=== PATIENT | female | born 1965 | race Caucasian/White ===

== ENCOUNTER 2020-09-02 08:10 | Outpatient (REF) | payer BC, SELFPAY ==
[2020-09-02 11:23] LABS: Free T4 (Free Thyroxine) 0.94 ng/dL (0.71-1.85); Thyroid Stimulating Hormone 2.36 uIU/mL (0.32-4.0)
[2020-09-03 14:42] LABS: Triiodothyronine T3 Free 3.1 pg/mL (2.3-4.2)
[2020-09-07 03:37] LABS: Thyroglobulin Antibody <1 IU/mL (<=1); Thyroglobulin Level <0.1 ng/mL
== END 2020-09-02 08:11 | disposition home or self-care (01) ==
LOC: HO.WFDLDS 08:10
PROVIDERS: PCP Pediatrics; Visit Provider Internal Medicine Endocrinology, Diabetes & Metabolism
DX: E89.0 Postprocedural hypothyroidism (principal); C73 Malignant neoplasm of thyroid gland
CPT/HCPCS: 36415; 84432; 84439; 84443; 84481; 86800

== ENCOUNTER 2021-02-17 08:05 | Outpatient (REF) | payer BC, SELFPAY ==
[2021-02-17 11:41] LABS: Free T4 (Free Thyroxine) 1.02 ng/dL (0.71-1.85); Thyroid Stimulating Hormone 0.72 uIU/mL (0.32-4.0)
[2021-02-18 20:27] LABS: Triiodothyronine T3 Free 3.3 pg/mL (2.3-4.2)
[2021-02-21 04:21] LABS: Thyroglobulin Antibody <1 IU/mL (<=1); Thyroglobulin Level <0.1 ng/mL
== END 2021-02-17 08:06 | disposition home or self-care (01) ==
LOC: HO.WFDLDS 08:05
PROVIDERS: PCP Pediatrics; Visit Provider Internal Medicine Endocrinology, Diabetes & Metabolism
DX: C73 Malignant neoplasm of thyroid gland (principal); E89.0 Postprocedural hypothyroidism
CPT/HCPCS: 36415; 84432; 84439; 84443; 84481; 86800

== ENCOUNTER → 2021-02-26 07:28 | Outpatient (BNVA) | payer BC, SELFPAY | PROVIDERS: PCP Pediatrics; Visit Provider Internal Medicine Endocrinology, Diabetes & Metabolism ==

== ENCOUNTER 2022-04-27 08:45 | Outpatient (REF) | payer BC, SELFPAY ==
[2022-04-27 10:26] LABS: Free T4 (Free Thyroxine) 1.12 ng/dL (0.71-1.85); Thyroid Stimulating Hormone 0.78 uIU/mL (0.32-4.0)
[2022-04-29 00:41] LABS: Triiodothyronine T3 Free 3.5 pg/mL (2.3-4.2)
[2022-04-30 04:42] LABS: Thyroglobulin Antibody <1 IU/mL (<=1); Thyroglobulin Level <0.1 ng/mL
== END 2022-04-27 08:46 | disposition home or self-care (01) ==
LOC: HO.LAB 08:45
PROVIDERS: PCP Internal Medicine; Visit Provider Internal Medicine Endocrinology, Diabetes & Metabolism
DX: E03.9 Hypothyroidism, unspecified (principal); C73 Malignant neoplasm of thyroid gland
CPT/HCPCS: 36415; 84432; 84439; 84443; 84481; 86800

== ENCOUNTER 2023-04-22 09:27 | Outpatient (REF) | payer BC, SELFPAY ==
[2023-04-22 12:11] LABS: Free T4 (Free Thyroxine) 0.94 ng/dL (0.71-1.85); Thyroid Stimulating Hormone 1.14 uIU/mL (0.32-4.0)
[2023-04-27 06:19] LABS: Thyroglobulin Antibody <1 IU/mL (<=1); Thyroglobulin Level <0.1 ng/mL
== END 2023-04-22 09:28 | disposition home or self-care (01) ==
LOC: HO.WFDLDS 09:27
PROVIDERS: Visit Provider Internal Medicine Endocrinology, Diabetes & Metabolism
DX: C73 Malignant neoplasm of thyroid gland (principal); E03.9 Hypothyroidism, unspecified
CPT/HCPCS: 36415; 84432; 84439; 84443; 86800

== ENCOUNTER 2023-05-06 07:47 | Outpatient (AMB) | payer BC, SELFPAY ==
[2023-05-06 07:53] VITALS: BP 124/72; PULSE 83; BMI 32.7
--- NOTE | 2023-05-06 07:53 | MHC.OFFVIS ---
Intake Vital Signs 05/06/23 07:53 Height 5 ft 10.63 in Weight 231 lb 14.821 oz BMI 32.7 BP 124/72 Blood Pressure Location Rt brachial Position Sitting Pulse 83 Pulse Source Pulse Oximeter Intake Visit Reasons: F/up thyroid cancer/Confirm Intake Note: Patient present today for Thyroid cancer follow up visit. 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 Accompanied by: Self / Same As Patient Allergies No Known Allergies Allergy (Verified 05/06/23 07:56) Medication List - Last Reconciled 05/06/23 by Jose Bach MD amlodipine 5 mg PO DAILY folic acid 1 mg PO DAILY hydroxychloroquine (Plaquenil) 400 mg PO DAILY leflunomide 10 mg PO DAILY leucovorin calcium 15 mg PO weekly; levothyroxine (Synthroid) 137 mcg PO DAILY 90 days liothyronine (Cytomel) 5 mcg PO .Twice a day 90 days methotrexate sodium 8 tabs weekly PO every week; HPI HPI Comments History of Present Illness Details 57 -year-old female today for fup visit, for fup PTC and postsurgical hypothyroidism . She is feeling well, she has no complaints. She has been on Synthroid 137 mcg plus Cytomel 5 mcg twice a day since 01/03/2019. She is 100 % adherent and she has a good method of administration. She has stage 1 PTC ( T1b, Nx M0). tumor size 1.5 x 1.5 x 1.0 cm Denies palpitations, tremors, constipation or diarrhea, nervousness, insomnia, weight stable, heat intolerance, sweating. She has PMH of mixed connective tissue disorder , post surgical/BLANCHARD ablation hypothyroidism for papillary carcinoma 2009. The summary of thyroid history is as follows: She underwent thyroid ultrasound on 05/15/10 and was found to have a multinodular goiter. One nodule had PTC in the right lower base that measured 1.19 x 1.52 x 1.83 cm and The patient underwent total thyroidectomy on 07/17/10. Histology showed that papillary carcinoma measured 1.5 x 1.5 x 1.0 cm and it was present in the right lobe. There was no lymphovascular invasion and no extra thyroidal extension was identified. The margins were free of tumor. The stage was pT1b lymph nodes were not resected during thyroidectomy and classification for lymph nodes pNx. After thyroidectomy, the patient underwent pre- ablation scan which was conducted on 08/14/10. This scan showed focused radioiodine uptake in the neck. There was no other uptake other than physiologic indicating that there was no distant metastatic disease uptake in the neck of the thyroid bed indicates a functioning thyroid tissue as the patient has not yet had radioactive iodine ablation. She was ablated with 101.3 mCi of radioactive iodine-131 on 08/17/10. Neck ultrasound in 02/12/2020 showed normal morphology lymphadenopathy no abnormal lymph nodes and no residual tissue. Laboratory Tests 01/29/20 02/17/21 02/17/21 07:42 08:20 08:20 TSH 3rd Generation 0.40 TSH 0.72 Free T4 1.02 Free T3 Thyroglobulin <0.1 Thyroglobulin Anti body <1 02/17/21 08:20 TSH 3rd Generation TSH Free T4 Free T3 3.3 Thyroglobulin Thyroglobulin Anti body Laboratory Tests 11/02/18 11/02/18 01/02/19 10:25 10:25 08:49 TSH Free T4 1.06 1.00 Free T3 2.7 TSH 3rd Generation 6.01 H 5.35 H Thyroglobulin Thyroglobulin Anti body 01/02/19 07/17/19 07/17/19 08:49 08:41 08:41 TSH Free T4 1.02 Free T3 2.7 3.1 TSH 3rd Generation 2.83 Thyroglobulin <0.1 Thyroglobulin Anti body <1 01/29/20 01/29/20 09/02/20 07:42 07:42 08:30 TSH 2.36 Free T4 1.07 0.94 Free T3 3.7 TSH 3rd Generation 0.40 Thyroglobulin <0.1 Thyroglobulin Anti body <1 09/02/20 09/02/20 02/17/21 08:30 08:30 08:20 TSH Free T4 Free T3 3.1 TSH 3rd Generation Thyroglobulin <0.1 Thyroglobulin Anti body <1 <1 [facility] Medical History (Updated 02/26/21 @ 07:42 by Iveth Pollard MD) Hypothyroidism Primary thyroid cancer Surgical History History of biopsy History of surgery Hx of total thyroidectomy Family History Mother Myocardial infarct Social History Alcohol intake: current Patient Tobacco Use Status: Never used Tobacco Physical Exam Vital Signs: Last Vital Signs Pulse 83 05/06/23 07:53 BP 124/72 05/06/23 07:53 BMI result Body Mass Index 32.7 HEENT Other: Healed scar status post thyroidectomy. There is no cervical adenopathy palpated. Reflexes 2+ deep Assessment & Plan Assessment & Plan (1) Primary thyroid cancer: Code(s): C73 - Malignant neoplasm of thyroid gland Plan: This is a 56-year-old white female with a history of papillary cancer status post total thyroidectomy currently replaced on levothyroxine (Synthroid) 137 mcg and Cytomel 5 mcg. She appears to be clinically biochemically euthyroid. Thyroglobulin have been undetectable. Plan is to continue the current management Medications: Refilled liothyronine (Cytomel) 5 mcg PO .Twice a day 90 days 180 tabs 3RF E03.9 - Hypothyroidism, unspecified levothyroxine (Synthroid) 137 mcg PO DAILY 90 days 90 tabs 4RF E03.9 - Hypothyroidism, unspecified Coding Level of Care Code Est Pt Level 3 (33825) Diagnoses Primary thyroid cancer C73
== END 2023-05-06 08:20 | disposition home or self-care (01) ==
PROVIDERS: PCP Internal Medicine; Visit Provider Internal Medicine Endocrinology, Diabetes & Metabolism
DX: C73 Malignant neoplasm of thyroid gland (principal)
CPT/HCPCS: 99213

== ENCOUNTER → 2023-05-06 07:47 | Outpatient (BNVA) | payer BC, SELFPAY | PROVIDERS: PCP Internal Medicine; Visit Provider Internal Medicine Endocrinology, Diabetes & Metabolism ==

== ENCOUNTER 2024-05-02 09:22 | Outpatient (REF) | payer BC, SELFPAY ==
[2024-05-02 12:03] LABS: Free T4 (Free Thyroxine) 0.98 ng/dL (0.71-1.85); Thyroid Stimulating Hormone 1.51 uIU/mL (0.32-4.0)
[2024-05-06 22:09] LABS: Thyroglobulin Antibody <1 IU/mL (<=1); Thyroglobulin Level <0.1 ng/mL
== END 2024-05-02 09:23 | disposition home or self-care (01) ==
LOC: HO.WFDLDS 09:22
PROVIDERS: Visit Provider Internal Medicine Endocrinology, Diabetes & Metabolism
DX: C73 Malignant neoplasm of thyroid gland (principal)
CPT/HCPCS: 36415; 84432; 84439; 84443; 86800

== ENCOUNTER 2024-05-08 07:49 | Outpatient (AMB) | payer BC, SELFPAY ==
--- NOTE | 2024-05-08 07:53 | MHC.OFFVIS ---
Vital Signs 05/08/24 07:56 Height 5 ft 10 in Weight 237 lb 7.005 oz BMI 34.1 BP 132/78 Blood Pressure Location Rt brachial Position Sitting Pulse 75 Pulse Source Pulse Oximeter Intake Visit Reasons: F/up thyroid cancer Intake Note: Patient present for Thyroid Cancer follow up. 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 She is feeling well, she has no complaints. She has been on Synthroid 137 mcg plus Cytomel 5 mcg twice a day since 01/03/2019. She is 100 % adherent and she has a good method of administration. She has stage 1 PTC ( T1b, Nx M0). tumor size 1.5 x 1.5 x 1.0 cm Denies palpitations, tremors, constipation or diarrhea, nervousness, insomnia, weight stable, heat intolerance, sweating. She has PMH of mixed connective tissue disorder , post surgical/BLANCHARD ablation hypothyroidism for papillary carcinoma 2009. The summary of thyroid history is as follows: She underwent thyroid ultrasound on 05/15/10 and was found to have a multinodular goiter. One nodule had PTC in the right lower base that measured 1.19 x 1.52 x 1.83 cm and The patient underwent total thyroidectomy on 07/17/10. Histology showed that papillary carcinoma measured 1.5 x 1.5 x 1.0 cm and it was present in the right lobe. There was no lymphovascular invasion and no extra thyroidal extension was identified. The margins were free of tumor. The stage was pT1b lymph nodes were not resected during thyroidectomy and classification for lymph nodes pNx. After thyroidectomy, the patient underwent pre- ablation scan which was conducted on 08/14/10. This scan showed focused radioiodine uptake in the neck. There was no other uptake other than physiologic indicating that there was no distant metastatic disease uptake in the neck of the thyroid bed indicates a functioning thyroid tissue as the patient has not yet had radioactive iodine ablation. She was ablated with 101.3 mCi of radioactive iodine-131 on 08/17/10. Neck ultrasound in 02/12/2020 showed normal morphology lymphadenopathy no abnormal lymph nodes and no residual tissue. Laboratory Tests 01/29/20 02/17/21 02/17/21 07:42 08:20 08:20 TSH 3rd Generation 0.40 TSH 0.72 Free T4 1.02 Free T3 Thyroglobulin <0.1 Thyroglobulin Antibody <1 02/17/21 08:20 TSH 3rd Generation TSH Free T4 Free T3 3.3 Thyroglobulin Thyroglobulin Antibody Laboratory Tests 11/02/18 11/02/18 01/02/19 10:25 10:25 08:49 TSH Free T4 1.06 1.00 Free T3 2.7 TSH 3rd Generation 6.01 H 5.35 H Thyroglobulin Thyroglobulin Antibody 01/02/19 07/17/19 07/17/19 08:49 08:41 08:41 TSH Free T4 1.02 Free T3 2.7 3.1 TSH 3rd Generation 2.83 Thyroglobulin <0.1 Thyroglobulin Antibody <1 01/29/20 01/29/20 09/02/20 07:42 07:42 08:30 TSH 2.36 Free T4 1.07 0.94 Free T3 3.7 TSH 3rd Generation 0.40 Thyroglobulin <0.1 Thyroglobulin Antibody <1 09/02/20 09/02/20 02/17/21 08:30 08:30 08:20 TSH Free T4 Free T3 3.1 TSH 3rd Generation Thyroglobulin <0.1 Thyroglobulin Antibody <1 <1 PFSH Medical History (Updated 02/26/21 @ 07:42 by Iveth Pollard MD) Primary thyroid cancer Hypothyroidism Surgical History History of biopsy History of surgery Hx of total thyroidectomy Family History Mother Myocardial infarct Social History Alcohol intake: current Patient Tobacco Use Status: Never used Tobacco Physical Exam Vital Signs: BMI result Body Mass Index 34.1 HEENT Other: Healed scar status post thyroidectomy. There is no cervical adenopathy palpated. Reflexes 2+ deep Assessment & Plan Assessment & Plan (1) Primary thyroid cancer: Code(s): C73 - Malignant neoplasm of thyroid gland Category: Medical Plan: This is a 58-year-old white female with a history of papillary cancer status post total thyroidectomy currently replaced on levothyroxine (Synthroid) 137 mcg and Cytomel 5 mcg. She appears to be clinically biochemically euthyroid. Thyroglobulin have been undetectable. Plan is to continue the current management Medications: Changed From levothyroxine (Synthroid) 137 mcg PO DAILY 90 days 90 tabs 4RF E03.9 - Hypothyroidism, unspecified To Synthroid (levothyroxine) 137 mcg PO DAILY 90 days 90 tabs 4RF NS E03.9 - Hypothyroidism, unspecified Coding Level of Care Code Est Pt Level 3 (43072) Diagnoses Primary thyroid cancer C73
[2024-05-08 07:56] VITALS: BP 132/78; PULSE 75; BMI 34.1
== END 2024-05-08 08:22 | disposition home or self-care (01) ==
PROVIDERS: PCP Internal Medicine; Visit Provider Internal Medicine Endocrinology, Diabetes & Metabolism
DX: C73 Malignant neoplasm of thyroid gland (principal)
CPT/HCPCS: 99213

== ENCOUNTER → 2024-05-08 07:49 | Outpatient (BNVA) | payer BC, SELFPAY | PROVIDERS: PCP Internal Medicine; Visit Provider Internal Medicine Endocrinology, Diabetes & Metabolism ==

== ENCOUNTER 2025-05-02 09:44 | Outpatient (REF) | payer BC, SELFPAY ==
--- OUTSIDE RECORDS SUMMARY | 2025-05-02 10:51 | XMS_ITS | Clinical Summary ---
Author Organization [facility] Address [address] [place] [address] Care Team Providers Care Rehabilitation Team Lead Name Role Phone Abram Carbajal Primary Care Provider [phone] Allergies No known active allergies Medications liothyronine (CYTOMEL) 5 mcg tablet Take 5 mcg by mouth. Active levothyroxine (SYNTHROID, LEVOTHROID) 137 mcg tablet Take 1 tablet by mouth daily. Active methotrexate (TREXALL) 2.5 mg tablet TAKE 8 TABLETS (20MG TOTAL)ONCE WEEKLY 96 tablet 5 Active leucovorin 15 mg tablet TAKE 1 TABLET WEEKLY WITH AFULL GLASS OF WATER 12 tablet 3 5 Active amLODIPine (NORVASC) 5 mg tablet TAKE 1 TABLET ONCE DAILY 90 tablet 3 5 Active hydroxychloroq uine (PLAQUENIL) 200 mg tablet TAKE 2 TABLETS DAILY 180 tablet 3 5 Active folic acid (FOLVITE) 1 mg tablet TAKE 1 TABLET ONCE DAILY 90 tablet 3 5 Active leflunomide (ARAVA) 10 mg tabletIndicati ons:Mixed connective tissue disease (HCC),High risk medication use Take 1 tablet (10 mg total) by mouth once a day. 90 tablet 3 5 Active leflunomide (ARAVA) 10 mg tabletIndicati ons:Mixed connective tissue disease (HCC),High risk medication use Take 1 tablet (10 mg total) by mouth once a day. 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 12/05 Postoperative hypothyroidism 12/31/2021 Mixed connective tissue disease 12/31/2021 Resolved Problems Problem Noted Date Diagnosed Date Resolved Date Abnormal PFTs 12/27/2022 Encounters Date Type Department Care Team Description 04/14/2025 Refill [facility] [address] [place] [id number] Television Antenna Installer: Kalee Bob MD Mixed connective tissue disease (HCC); High risk medication use 02/24/2025 Refill [facility] [address] [place] [id number] Television Antenna Installer: Kalee Bob MD 02/21/2025 Refill [facility] [address] [place] [id number] Television Antenna Installer: Kalee Bob MD Mixed connective tissue disease (HCC); High risk medication use from Last 3 Months Family History Medical History Relation Name Comments Arthritis Mother Relation Name Status Comments Father Mother Social History Tobacco Use Types Packs/Day Years Used Date Smoking Tobacco: Never Smokeless Tobacco: Never Alcohol Use Standard Drinks/Week Comments Yes 0 (1 standard drink = 0.6 oz pur e alcohol) rarely Comments Unknown Sex and Gender Information Value Date Recorded Sex Assigned at Female 12/31/2021 8:28 AM EDT Legal Sex Female 3:09 PM EDT Gender Identity Female 12/31/2021 8:28 AM EDT Sexual Orientation Straight 12/31/2021 8: 28 AM EDT 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 Not on file Not on file Last Filed Vital Signs Vital Sign Reading Time Taken Comments Blood Pressure 134/76 12/09/2023 1:09 PM EDT Pulse 76 12/09/2023 1:09 PM EDT Temperature 36.9 C (98.5 F) 12/09/2023 1:09 PM EDT Respiratory Rate - - Oxygen Saturation - - Inhaled Oxygen Concentration - - Weight 103 kg (227 lb) 04/23/2024 10:08 AM EDT Height 175.3 cm (5' 9 ) 04/23/2024 10:08 AM EDT Body Mass Index 33.52 04/23/2024 10:08 AM EDT Plan of Treatment Upcoming Encounters Date Type Department Care Team (Late st Contact Info) Description 01/08/2026 10:20 AM EDT Follow-Up [facility] [address] [place] [address] Television Antenna Installer: Kalee Bob MD [address] [place] [address] Health Maintenance Due Date Last Done Comments Cervical Cancer Screening 1967 Cologuard 1967 Colonoscopy 1967 HIV Screening 1967 HPV and Pap Smear 1967 Hepatitis C Screening 1967 Pap Smear 1967 Sigmoidoscopy 1967 Hepatitis B Vaccines (1 of 3 - 19+ 3-dose series) 1986 Mammogram 2007 Zoster Vaccines (1 of 2) 2017 Colon Cancer Screening 12/04/2022 FOBT / Fit Test 12/04/2022 12/04/2021 Pneumococcal Vaccine: 50+ Ye ars (3 of 3 - PCV20 or PCV21) 01/17/2024 01/16/2019, 07/07/2018 COVID-19 Vaccine (3 - 2023-2 5 season) 2024 02/03/2021, 01/05/2021 Alcohol/Substance Use Screening 09/05/2024 Depression Screening and Follow-Up 09/05/2024 Social Drivers of Health Anju ual Screening 09/05/2024 Influenza Vaccine (#1) 2025 , 07/08/2020, 09/21/2019, Additional history exists DTaP,Tdap,and Td Vaccines (3 - Td or Tdap) 05/03/2034 05/03/2024, 02/26/2013, 06/05/2008 RSV Vaccine (60+ years old a nd patients) (1 - 1-dose 75+ series) 2042 Procedures * Due to [place] state law, this organization might not be sharing negative HIV tests. Procedure Name Priority Date/Time Associated Diagnosis Comments LAB - SCANNED 03/29/2025 from Last 3 Months Results * Due to [place] state law, this organization might not be sharing negative HIV tests. * LAB - SCANNED (03/29/2025) us Onbase Scan [facility] HISTORICAL RESULTS Final Result from Last 3 Months Insurance [facility] HMO/POS Care Teams Rehabilitation Team Lead Relationship Specialty Start Date End Date Abram Carbajal [address] [place] [address] PCP - General 07/10/24
--- OUTSIDE RECORDS SUMMARY | 2025-05-02 10:51 | XMS_ITS | Clinical Summary ---
Author Organization [facility] Address [address] [address] Phone Care Team Providers Care Sap Developer Name Role Phone Alexsandra Aranda MD Primary Care Provid er Allergies No known active allergies Social History Tobacco Use Types Packs/Day Years Used Date Smoking Tobacco: Never Assessed Education Answer Date Recorded Are you interested in more education? Not on alesia e 12/30/2022 Are you concerned about learning? Not on file 12/30/2022 No 12/30/2022 No 12/30/2022 Digital Access Answer Date Recorded No 01/31/2023 No 01/31/2023 No 01/31/2023 Reliable internet access at home? Not on file 01/31/2023 Device with a working camera? Not on file Comments Unknown Sex and Gender Information Value Date Recorded Sex Assigned at Not on file Legal Sex Female 7:05 PM EST Gender Identity Not on file Sexual Orientation Not on file Last Filed Vital Signs Vital Sign Reading Time Taken Comments Blood Pressure 126/72 01/04/2014 9:15 AM EDT Pulse 81 01/04/2014 9:15 AM EDT Temperature 36.8 C (98.3 F) 01/04/2014 9:15 AM EDT Respiratory Rate 16 01/04/2014 9:15 AM EDT Oxygen Saturation - - Inhaled Oxygen Concentration - - Weight 88.6 kg (195 lb 6.4 oz) 09/21/2013 9:07 A M EST Height 175.3 cm (5' 9 ) 05/29/2012 11:26 AM EDT Body Mass Index 28.86 05/29/2012 11:26 AM EDT Plan of Treatment Health Maintenance Due Date Last Done Comments LIPID PANEL 1967 DEPRESSION SCREENING 1979 SMOKING Hx and SMOKELESS TOBACCO SCREENING 1980 HEPATITIS C SCREENING 1985 HIV ONE-TIME SCREENING (18-65 YEARS) 1985 PAP SMEAR 1988 MAMMOGRAM 2007 COLOGUARD 2012 COLONOSCOPY 2012 COLORECTAL CANCER SCREENING 2012 FIT TEST 2012 FOBT 2012 SIGMOIDOSCOPY 2012 VIRTUAL COLONOSCOPY 2012 ZOSTER VACCINES (1 of 2) 2017 Adult Td,Tdap Booster 02/26/2023 02/26/2013, 008 PNEUMOCOCCAL VACCINES (50+ years) (3 of 3 - PCV20 or PCV21) 01/17/2024 01/16/2019, 07/07/2018 COVID-19 VACCINE (3 - season) 2024 02/03/2021, 01/05/2021 INFLUENZA VACCINE (#1) 2025 , 09/21/2019, 07/07/2018, Additional history exists HEPATITIS A VACCINES Aged Out No long er eligible based on patient's age to complete this topic HIB VACCINES Aged Out No longer eligi ble based on patient's age to complete this topic MENINGOCOCCAL VACCINES (ACWY) Aged Out No longer eligible based on patient's age to complete this topic MENINGOCOCCAL VACCINES (B) Aged Out N o longer eligible based on patient's age to complete this topic Medical Devices Not on file Insurance [facility] Member Subscriber Plan / Payer (Ef fective for All Dates) Name:Heather Ball Relation to Subscriber:Spouse Name:CLIF WATKINS Date of :1900 (Home) Address: [address] [place] [address] Payer ID:[id number] (NAIC) Type:HMO Address: [address] [place], [place] [facility] Member Subscriber Plan / Payer (Ef fective for All Dates) Name:Heather Ball Relation to Subscriber:Spouse Name:CLIF WATKINS Date of :1900 (Home) Address: [address] [place] [address] Payer ID:[id number] (NAIC) Type:HMO Address: [address] [place] [facility] POS [facility] HMO POS [facility] POS Care Teams Sap Developer Relationship Specialty Start Date End Date [facility] [address] [address] PCP - General 03/05/14 Additional Source Comments The information contained in this document represents components of the legal health record. It is not the complete legal health record.[facility]
--- OUTSIDE RECORDS SUMMARY | 2025-05-02 10:51 | XMS_ITS ---
Author Name [facility] Organization Unknown Care Team Organization Name Specialty Phone Email Start Date End Da te [facility] REINA HUTCHINS Primary Care [email or web address] 01/10/2023 04/23/2024 [facility] Brenna De La Cruz Primary Care 07/13/2022
--- OUTSIDE RECORDS SUMMARY | 2025-05-02 10:51 | XMS_ITS | Clinical Summary ---
Author Organization [facility] Address [address] [place] [phone] Phone Care Team Providers Care Environmental Remediation Engineer Name Role Phone Abram Carbajal MD Primary Care Provider Medications amLODIPine (NORVASC) 5 mg tablet Take 1 tablet (5 mg total) by mouth. 1 Active cholecalciferol (VITAMIN D-3) 50 mcg (2,000 unit) tablet Take 3 tablets (6,000 Units total) by mouth. Active diclofenac (VOLTAREN) 1 % topical gel Apply topically 4 times daily as needed. 9 Active hydroxychloroqui ne (PLAQUENIL) 200 mg tablet 2 tablets orally daily 2 Active leflunomide (ARAVA) 10 mg tablet Take 1 tablet (10 mg total) by mouth. 1 Active calcium carbonate/vitami n D3 (CALCIUM CARBONATE-VITAMI N D PO) Take by mouth. Activ e MULTIVITAMIN ORAL Take 1 capsule by mouth 1 (one) time each day. 4 Active liothyronine (CYTOMEL) 5 mcg tablet Take 1 tablet (5 mcg total) by mouth. 4 Active levothyroxine (SYNTHROID, LEVOTHROID) 137 mcg tablet Take 1 tablet (137 mcg total) by mouth 1 (one) time each day. Active Lactobacillus acidophilus (PROBIOTIC ORAL) Take 1 tablet by mouth 1 (one) time each day. 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 12/05 Postoperative hypothyroidism 12/31/2021 Cataract, left 06/09/2021 Mixed collagen vascular disease ([facility] V24) Overview (06/14/2024): Mixed Connective Tissue Disease Thyroid cancer ([facility] V24, [facility] V28) 2009 Overview (06/14/2024): Papillary thyroid cancer stage I, 2009 [facility] - thyroidectomy MCTD (mixed connective tissue disease) ([facility] V24) 06/05/2008 Overview (06/14/2024): Plaquenil use Immunizations Name Administration Dates Next Due Influenza Quadravalent, MDCK , 0.5ml, preservative free (Flucelvax) 6mo and older 11/05/2022 Influenza trivalent, 0.5mL, preservative free (Fluarix; FluLaval; Fluzone) ages 6mo and older (Afluria) 3 years and older 07/08/2020,09/21/2019,07/07/2018,06/05 Pneumococcal conjugate 13 va lent (Prevnar 13, PCV13) 2mo and older 07/07/2018 Pneumococcal polysaccharide 23 valent (Pneumovax 23) 2yo and older 01/16/2019 Td Tetanus diptheria (Tdvax) 7yo and older 06/05/2008 Tdap Tetanus diptheria acell ular pertussis (Boostrix; Adacel) 7yo and older 05/03/2024,02/26/2013 Surgical History Surgery Date Site/Laterality Comments ESOPHAGOGASTRODUODENOSCOPY 11/12/08 PROCEDURE: LA ESOPHAGOGASTRODUODENOSCOPY TRANSORAL DIAGNOSTIC; COMMENT: normal, except for impressionof twisting of stomach OTHER SURGICAL HISTORY 2006 PROCEDURE: LA BIOPSY MUSCLE DEEP OTHER SURGICAL HISTORY 07/17/2007 PROCEDURE: LA THYROIDECTOMY TOTAL/SUBTOTAL LMTD NECK DISSECT Medical History Medical History Date Comments Extrinsic asthma, unspecified DX :Extrinsic asthma, unspecified; COMMENT: as a child 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 Mixed connective tissue dise ase ([facility] V24) DX:Mixed connective tissue d isease ([facility]) History of blood clotting disorder Sep 2007 DX:History of blood clotting disorder; COMMENT: during Pyloric stenosis 1967 DX:Pyloric sten osis Preeclampsia DX:Preeclampsia Thyroid cancer ([facility] V24, [facility] V28) 06/16/2010 DX:Thyroid cancer (HCC) Thyroid cancer ([facility] V24, [facility] V28) 06/16/2010 DX:Thyroid cancer (HCC) Lupus (systemic lupus erythe matosus) ([facility] V24, [facility] V28) DX:Lupus (systemic lupus erythematosus) ([facility]); COMMENT: Dr Rick Dodge, [facility] Raynaud's disease DX:Raynaud's d isease RA (rheumatoid arthritis) ([facility] V24, [facility] V28) 06/09/2021 DX:RA (rheumatoid arthritis) ([facility]) Family History Medical History Relation Name Comments Coronary artery disease Brother 1 half brother, stented Diabetes Maternal Grandfather Thyroid disease Maternal Grandmother Heart attack Mother age 42 Thyroid disease Mother Diabetes Paternal Grandfather Hyperlipidemia Sister 1 half sister Other: Kallman's syndrome Son Relation Name Status Comments Brother 1 Alive high chol Brother 2 Alive healthy Daughter Alive healthy Father Alive diabetes, htn Maternal Grandfather diabete s Maternal Grandmother no medi malik problems Mother Alive heart disease, thyroid removed Paternal Grandfather diabete s Paternal Grandmother no medi malik problems Sister 1 Alive healthy Sister 2 Alive healthy Son Alive healthy Social History Tobacco Use Types Packs/Day Years Used Date Smoking Tobacco: Never Smokeless Tobacco: Never Alcohol Use Standard Drinks/Week Comments Yes 0 (1 standard drink = 0.6 oz pur e alcohol) Comments Unknown Sex and Gender Information Value Date Recorded Sex Assigned at Not on file Legal Sex Female 7:20 AM EST Gender Identity Not on file Sexual Orientation Not on file Obstetrics History Last Filed Vital Signs Vital Sign Reading Time Taken Comments Blood Pressure 128/72 05/03/2024 3:57 PM EDT Pulse 83 05/03/2024 3:57 PM EDT Temperature - - Respiratory Rate - - Oxygen Saturation - - Inhaled Oxygen Concentration - - Weight 106 kg (234 lb) 05/03/2024 3:57 PM EDT Height 175.3 cm (5' 9 ) 05/03/2024 3:57 PM EDT Body Mass Index 34.56 05/03/2024 3:57 PM EDT Plan of Treatment Upcoming Encounters Date Type Department Care Team (Late st Contact Info) Description 05/03/2025 8:00 AM EDT Office Visit [place] [facility] [place] [address] [facility] [place] [phone] Abram Carbajal MD [address] [facility] [place] [address] Health Maintenance Due Date Last Done Comments Hepatitis B Vaccines (1 of 3 - 19+ 3-dose series) 1986 Zoster Vaccines (1 of 2) 1986 Cervical Cancer Screening: Pap Smear 1988 COVID-19 Vaccine (3 - Moderna risk series) 03/03/2021 02/03/2021, 01/05/2021 HIV Screening 08/08/2022 Hepatitis C Screening 08/08/2022 Social Influencers of Health Screening 08/08/2022 Pneumococcal Vaccine: 50+ Years (3 of 3 - PPSV23, PCV20 or PCV21) 01/17/2024 01/16/2019, 07/07/2018 Depression Screening 09/05/2024 Breast Cancer Screening 10/26/2024 10/26/2022 Influenza Vaccine (#1) 2025 3, 07/08/2020, 09/21/2019, Additional history exists Cholesterol Screening (Lipid Panel) 04/21/2027 04/21/2022 Colorectal Cancer Screening: FIT-DNA (Cologuard) 05/30/2027 05/30/2024 DTaP,Tdap,and Td Vaccines (4 - Td or Tdap) 05/03/2034 05/03/2024, 02/26/2013, 06/05/2008 HIB Vaccines Aged Out No longer eligi ble based on patient's age to complete this topic HPV Vaccines Aged Out No longer eligi ble based on patient's age to complete this topic Hepatitis A Vaccines Aged Out No long er eligible based on patient's age to complete this topic IPV Vaccines Aged Out No longer eligi ble based on patient's age to complete this topic MMR Vaccines Aged Out No longer eligi ble based on patient's age to complete this topic Meningococcal ACWY Vaccine Aged Out N o longer eligible based on patient's age to complete this topic Meningococcal B Vaccine Aged Out No l onger eligible based on patient's age to complete this topic RSV Immunization Patients Under 20 months Aged Out No longer eligible based on patient's age to complete this topic Varicella Vaccines Aged Out No longer eligible based on patient's age to complete this topic Insurance [facility] Care Teams Environmental Remediation Engineer Relationship Specialty Start Date End Date Abram Carbajal MD [address] [place] [id number] PCP - General 10/11/22
[2025-05-02 12:41] LABS: Free T4 (Free Thyroxine) 1.01 ng/dL (0.71-1.85); Thyroid Stimulating Hormone 2.69 uIU/mL (0.32-4.0)
== END 2025-05-02 09:45 | disposition home or self-care (01) ==
LOC: HO.WFDLDS 09:44
PROVIDERS: Visit Provider Internal Medicine Endocrinology, Diabetes & Metabolism
DX: C73 Malignant neoplasm of thyroid gland (principal)
CPT/HCPCS: 36415; 84432; 84439; 84443; 84481; 86800

== ENCOUNTER 2025-05-08 07:48 | Outpatient (AMB) | payer BC, SELFPAY ==
--- OUTSIDE RECORDS SUMMARY | 2025-05-03 08:00 | XMS_ITS | Encounter Summary ---
Author Organization [facility] Address [address] [place] [address] Care Team Providers Care Drop Man Name Role Phone Abram Carbajal MD Primary Care Provider [phone] Reason for Referral * Consultation (Urgent) - Closed Specialty Diagnoses / Procedures Referred By Contjesus manuel t Referred To Contact Endocrinology Diagnoses Hypothyroidism, unspecified type Abram Carbajal MD [address] [place] [address] Phone: tel: fax: [facility] Endocrinology [address] [place] [address] Sadiq Lopez. [address] [place] Phone: tel: Referral ID Status Reason Start Date Expiration Date V isits Requested Visits Authorized [id number] Closed Specialty Services Required 04/27/2025 04/27/2026 6 6 Reason for Visit * Reason Comments Annual Exam 59 year old female Encounter Details Date Type Department Care Team (Late st Contact Info) Description 05/03/2025 8:00 AM EDT Office Visit Adult Medicine [facility] [address] [place] [address] [place] [address] Abram Carbajal MD [address] [facility] [place] [address] Annual physical exam (Primary Dx); Hypothyroidism, unspecified type; MCTD (mixed connective tissue disease) (CMS/HCC V24); Raynaud's phenomenon without gangrene Social History Tobacco Use Types Packs/Day Years Used Date Smoking Tobacco: Never Smokeless Tobacco: Never Alcohol Use Standard Drinks/Week Comments Yes 0 (1 standard drink = 0.6 oz pur e alcohol) Housing Instability Answer Date Recorde d Are you worried that in the next 2 months you may not have stable housing? No 05/03/2025 Food Access & Nutrition Answer Date Rec orded Do you have access to a vari ety of food including fruits and vegetables? Yes 05/03/2025 Access to Healthcare Answer Date Record ed Within the last 3 months, ho w many times did you visit the emergency department for your medical care? 0 05/03/2025 Health Literacy Answer Date Recorded How often do you need to hav e someone help you when you read instructions, pamphlets, or other written material from your doctor or pharmacy? Never 05/03/2025 Caregiver: How often do you need to have someone help you when you read instructions, pamphlets, or other written material from your doctor or pharmacy? Not on file 05/03/2025 Financial Risk Answer Date Recorded How hard is it for you to pa y for the very basics like food, housing, medical care, and air conditioning / heating? Very hard 05/03/2025 Transportation Answer Date Recorded Has the lack of transportati on kept you from meetings, work, or from getting things needed for daily living? No Has the lack of transportati on kept you from medical appointments or from getting medications? No 05/03/2025 Social Isolation Answer Date Recorded How often do you feel lonely or isolated from th ose around you? Never 05/03/2025 Food Risk Answer Date Recorded Within the past 12 months we worried whether our food would run out before we got money to buy more. Never true 05/03/2025 Within the past 12 months th e food we bought just didn't last and we didn't have money to get more. Never true 05/03/2025 Dependent Care Answer Date Recorded Do you need help finding or paying for care for your loved ones. For example, early childhood teacher or elderly care for an older adult? No 05/03/2025 Education Answer Date Recorded Do you think completing more education or training, like finishing a GED, going to college, or learning a trade, would be helpful for you? N/A 05/03/2025 Employment and Income Answer Date Recor ded During the last four weeks, have you been actively looking for work? No 05/03/2025 Living Situation Answer Date Recorded What is your living situation? 0 05/03/2025 Comments Unknown Sex and Gender Information Value Date Recorded Sex Assigned at Not on file Legal Sex Female 7:20 AM EST Gender Identity Not on file Sexual Orientation Not on file documented as of this encounter Last Filed Vital Signs Vital Sign Reading Time Taken Comments Blood Pressure 128/68 05/03/2025 7:49 AM EDT Pulse 73 05/03/2025 7:49 AM EDT Temperature 36.9 C (98.4 F) 05/03/2025 7:49 AM EDT Respiratory Rate 14 05/03/2025 7:49 AM EDT Oxygen Saturation 98% 05/03/2025 7:49 AM EDT Inhaled Oxygen Concentration - - Weight 103 kg (226 lb 9.6 oz) 05/03/2025 7:49 AM EDT Height 175.3 cm (5' 9 ) 05/03/2025 7:49 AM EDT Body Mass Index 33.46 05/03/2025 7:49 AM EDT documented in this encounter Patient Instructions * Attachments The following attachments cannot be sent through Care Everywhere. * Exercise: General Info (Panamanian) * Healthy Diet: Heart (Panamanian) * Recombinant Zoster (Shingles) Vaccine (RZV) (Panamanian) * Pneumococcal Conjugate Vaccine: VIS (Panamanian) documented in this encounter Progress Notes * Sabine Cline MA - 05/03/2025 8:00 AM EDT Depression Screening Will the patient answer the depression risk questions?: Yes Over the last 2 weeks, how often have you been bothered by little interest or pleasure in doing things?: Not at all Over the last 2 weeks, how often have you been bothered by feeling down, depressed, or hopeless?: Not at all Depression Risk: 0 Social Influencers of Health Who provided answers?: Self Within the past 12 months we worried whether our food would run out before we got money to buy more.: Never true Within the past 12 months the food we bought just didn't last and we didn't have money to get more.: Never true How hard is it for you to pay for the very basics like food, housing, medical care, and air conditioning / heating?: Very hard Are you worried that in the next 2 months you may not have stable housing?: No Do you have access to a variety of food including fruits and vegetables?: Yes Within the last 3 months, how many times did you visit the emergency department for your medical care?: 0 Has the lack of transportation kept you from meetings, work, or from getting things needed for daily living?: No Has the lack of transportation kept you from medical appointments or from getting medications?: No How often do you feel lonely or isolated from those around you?: Never How often do you need to have someone help you when you read instructions, pamphlets, or other written material from your doctor or pharmacy?: Never * Abram Carbajal MD - 05/03/2025 8:00 AM EDT CHIEF COMPLAINT: Annual Exam (59 year old female) IDENTIFIER: Heather Esparza is a 59 y.o. old female. HPI: Patient presents today for annual physical exam. History of Present Illness The patient presents for a routine checkup. She has been diagnosed with mixed connective tissue disease since 2004 and is under the care of a sheetmetal patternmaker, Dr. Kalee Alvarado, whom she visits twice a year. Her last visit was in 12/2024, and she had lab work done in 03/2025. She reports no adverse effects from Plaquenil or methotrexate. She has not experienced any unusual skin lesions, ulcers, or open wounds on her feet. She has always had skin tags that have remained unchanged in size, shape, and color. She has no personal or family history of skin cancer. She experiences pain when walking, which she attributes to her autoimmune condition. Her muscles are tight, and she experiences swelling in her legs after prolonged walking, which subsides upon lying down. She experiences mild pain in her legs but nothing severe or different from her baseline. She is currently on Arava (leflunomide) 10 mg daily and Plaquenil (hydroxychloroquine) 200 mg twice daily. She is not currently on prednisone. She is also on methotrexate 20 mg once weekly, folic acid 1 mg daily, and leucovorin 15 mg weekly. She is on amlodipine 5 mg daily for Raynaud's disease and has no history of hypertension. She does not monitor her blood pressure at home but believes it is within normal range. She has a history of cataracts but has never undergone eye surgery. She sees an maintenance specialist annually due to her Plaquenil use and has an appointment scheduled for 05/28/2025. She has not been informed of any abnormalities with her eyes, except for the need for corrective lenses. She has not received the hepatitis B vaccine, recent COVID-19 vaccine, pneumonia vaccine, or shingles vaccine. She is due for a Pap smear and plans to schedule an appointment with [facility], where she had her last visit 2 years ago. She visits the dentist every 6 months for routine cleaning. She has no family history of cancer or depression. She had a Cologuard test last year and is not dueuntil 2026. She had an echocardiogram last year as part of her routine evaluation due to her medication use. She reports normal urination and bowel movements. She has not had any recent hospitalizations or ER visits. She has no unusual skin lesions, ulcers, or open wounds on her feet. She has no history of STDs. She has no shortness of breath or chest pain. She has no unusual lumps under her arm or groin. She uses earwax removal at home. She was diagnosed with papillary thyroid cancer in 2009 and underwent surgery and radiation therapy. She has not seen an oncologist recently. She reports no recurrence of the cancer. She is currentlyon levothyroxine 137 mcg daily and Cytomel 5 mcg. She had a DVT in the early stage of over 18 years ago, which she believes was in her leftleg, but she is not certain. She has not had any recurrence since then and was told it was purely due to . She is not on any blood thinners. She takes vitamin D3 supplements. Alcohol: She reports no alcohol consumption. Recreational Drugs: She reports no recreational drug use. PAST SURGICAL HISTORY: - Surgery for papillary thyroid cancer in 2009 - Radiation therapy for thyroid cancer in 2009 FAMILY HISTORY She reports no family history of any type of cancers. February 15 2025 - last mammogram Senior Technical Support Engineer - Dr Luis Souza Senior Technical Support Engineer [facility] Echo 2023 Normal RV size and systolic function. No significant valvular disease identified. ROS: The remainder of review of systems is noncontributory. 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[facility] V24) 06/21/2014 Thyroid cancer ([facility] V24, [facility] V28) 06/16/2010 MCTD (mixed connective tissue disease) ([facility] V24) 06/05/2008 SOCIAL HISTORY: Social History Tobacco Use Smoking status: Never Smokeless tobacco: Never Substance Use Topics Alcohol use: Yes FAMILY HISTORY: Family Status Relation Name Status Mother Alive heart disease, thyroid removed Sister Alive healthy Brother Alive high chol MGM no medical problems MGF diabetes PGF diabetes Son Alive healthy Father Alive diabetes, htn Sister Alive healthy Brother Alive healthy PGM no medical problems Daughter Alive healthy No partnership data on file Family History Problem Relation Name Age of Onset Thyroid disease Mother Heart attack Mother age 42 Hyperlipidemia Sister half sister Coronary artery disease Brother 39.00 half brother, stented Thyroid disease Maternal Grandmother Diabetes Maternal Grandfather Diabetes Paternal Grandfather Other (Other: Kallman's syndrome) Son ACTIVE MEDICATIONS: Outpatient Medications Marked as Taking for the 05/03/25 encounter (Office Visit) with Abram Carbajal MD Medication Sig Dispense Refill amLODIPine (NORVASC) 5 mg tablet Take 1 tablet (5 mg total) by mouth. calcium carbonate/vitamin D3 (CALCIUM CARBONATE-VITAMIN D PO) Take by mouth. cholecalciferol (VITAMIN D-3) 50 mcg (2,000 unit) tablet Take 3 tablets (6,000 Units total) by mouth. hydroxychloroquine (PLAQUENIL) 200 mg tablet 2 tablets orally daily Lactobacillus acidophilus (PROBIOTIC ORAL) Take 1 tablet by mouth 1 (one) time each day. leflunomide (ARAVA) 10 mg tablet Take 1 tablet (10 mg total) by mouth. levothyroxine (SYNTHROID, LEVOTHROID) 137 mcg tablet Take 1 tablet (137 mcg total) by mouth 1 (one)time each day. liothyronine (CYTOMEL) 5 mcg tablet Take 1 tablet (5 mcg total) by mouth. MULTIVITAMIN ORAL Take 1 capsule by mouth 1 (one) time each day. ALLERGIES: Patient has no known allergies. PHYSICAL EXAM: Blood pressure 128/68, pulse 73, temperature 36.9 ??C (98.4 ??F), temperature source Temporal, resp. rate 14, height 1.753 m (69 ), weight 103 kg (226 lb 9.6 oz), SpO2 98%. Body mass index is 33.46 kg/m??. BMI is greater than 25.0 (above the normal range) - see Plan Physical Exam General Appearance: Normal. Vital signs: Within normal limits. HEENT: Ears: Cerumen present bilaterally, more on the right. Mouth/Throat: No abnormalities noted. Respiratory: Clear to auscultation, no wheezing, rales or rhonchi. Cardiovascular: Regular rate and rhythm, no murmurs, rubs, or gallops. Gastrointestinal: Soft, no tenderness, no distention, no masses. Lymphatic: No lymphadenopathy. Back, Musculoskeletal: No pain or swelling noted. Extremities: No swelling or tenderness noted. Skin: Multiple skin tags, unchanged in size, shape, or color. Neurological: Normal. LABS/IMAGING: No results found for: WBC , HGB , HCT , MCV No results found for: NA , K , CO2 , CL , BUN , GLU , ALB , ALKPHOS , TP No results found for: CHOL , LDL , HDL , TRIG No results found for: TSH Results Labs - Blood Count: 03/2025, Slight lab abnormalities - Metabolic Panel: 03/2025, Slight lab abnormalities IMPRESSION: No diagnosis found. PLAN: 1. Health maintenance: The patient presented for an evaluation of general health. As part of this visit, we reviewed the following issues, which are considered an essential part of preventative health in this age group: - Breast cancer screening, which includes clinical exam and mammograms annually - mammogram up-to-date - Colon cancer screening (colonoscopy every 10 years/annual FOBT plus flexi sigmoidoscopy every 5 years/double-contrast BE every 5 years/Cologuard every 3 years/Annual FOBT) - up to date - Cervical cancer testing every 1-5 years - patient is up-to-date - Blood pressure annual screening performed - Cholesterol screening every five years - ordered - Nutritional and exercise counseling - patient advised to pursue at least 30 minutes of exercise most days of the week, limit portion sizes, eat breakfast, and avoid eating after dinner - Screening for depression - no depression - Screening for Type 2 diabetes mellitus in those with hypertension and/or hyperlipidemia - Prevention of and/or testing for infectious diseases, which may include Chlamydia, Gonorrhea, Syphilis, HIV, Hepatitis C and Tuberculosis - advice about STD prevention provided - One time hepatitis C screening in all adults - Education about skin cancer - Recommendations about immunizations - patient is due for Pneumonia immunization and Herpes zoster(shingles) immunization but defers this - Recommendation of an eye exam for glaucoma every 2-4 years in this age range - patient will self-refer - Screening for substance abuse (including tobacco, alcohol, and recreational drugs) - see Substance & Sexuality section of medical record - In addition to reviewing these issues, I have reviewed the following sections of the chart: Past Medical History, Social History, and Social History - Did you have a dental visit in the last 12 months? Yes - Did you have a dental problem in the last 6 months? No Assessment & Plan 1. Mixed Connective Tissue Disease: - No adverse effects from Plaquenil or methotrexate have been reported. - Lab work will be rechecked to monitor her condition. - No recent notes from her sheetmetal patternmaker have been seen, but records will be requested through theportal. - She is currently on methotrexate 20 mg once weekly, folic acid 1 mg daily, leucovorin 15 mg weekly, leflunomide 10 mg daily, hydroxychloroquine 200 mg twice daily, and amlodipine 5 mg daily. 2. Raynaud's Phenomenon: - Blood pressure is currently stable. - Advised to monitor her blood pressure periodically to ensure it does not drop below 90/60 mmHg. - She is taking amlodipine 5 mg daily to help with Raynaud's symptoms. 3. Cataract: - She will follow up with her eye doctor on 05/28/2025 to assess the need for further intervention. 4. Health Maintenance: - She had a mammogram on 02/15/2025, and a Pap smear was done two years ago and was normal. A Cologuard test was done last year, and she is not due until 2026. - She declined the pneumonia vaccine today but was advised to consider it in the future. Lab work will be rechecked to monitor her overall health status. 5. Thyroid Cancer: - No recurrence has been reported since her surgery and radiation treatment. - She is currently on levothyroxine 137 mcg daily and Cytomel 5 mcg. 6. Deep Vein Thrombosis (DVT): - No recurrence has been reported since then 2004 7. Hypothyroidism Continue with levothyroxine 137 mcg daily and liothyronine 5 mcg daily Follow-up: Next scheduled visit in 1 year's time. No orders of the defined types were placed in this encounter. Abram Carbajal MD on 05/03/2025 at 7:58 AM EDT documented in this encounter Plan of Treatment Upcoming Encounters Date Type Department Care Team (Late st Contact Info) Description 05/07/2026 8:00 AM EDT Office Visit [facility] [address] [place] [address] Abram Carbajal MD [address] [place] [address] Scheduled Referrals Name Type Priority Associated Diagnoses Order Schedule Ambulatory referral to Endocrinology Outpatient Referral Routine Hypothyroidism, unspecified type 1 Occurrences starting 05/03/2025 until 05/03/2026 documented as of this encounter Results * Hepatitis C antibody (05/03/2025 8:46 AM EDT) [facility] Hepatitis C Antibody Negative Negative LAB CHEMISTRY METHOD 05/03/2025 5:06 PM EDT [facility] Blood Venous blood specimen / Unknown Venipuncture / Unknown 05/03/2025 8:46 AM EDT 05/03/2025 8:46 AM EDT us Abram Carbajal MD LAB BLOOD ORDERABLES Final Result [facility] [address] [place] [address], * Hemoglobin A1c (05/03/2025 8:46 AM EDT) [facility] Hemoglobin A1C 5.4 <6.5 % LAB CHEMISTRY METHOD 05/03/2025 1:40 PM EDT [facility] Mean Bld Glu Estim. 108 mg/dL LAB CHEMISTRY METHOD 05/03/2025 1:40 PM [facility] Blood Venous blood specimen / Unknown Venipuncture / Unknown 05/03/2025 8:46 AM EDT 05/03/2025 8:46 AM EDT us Abram Carbajal MD LAB BLOOD ORDERABLES Final Result [facility] [address] [place] [address], [place] [phone] * (ABNORMAL) Comprehensive metabolic panel (05/03/2025 8:46 AM EDT) [facility] Sodium 140 133 - 145 mmol/L LAB CHEMISTRY METHOD 05/03/2025 5:29 PM [facility] Potassium 4.5 3.5 - 5.5 mmol/L LAB CHEMISTRY METHOD 05/03/2025 5:29 PM [facility] Chloride 105 96 - 110 mmol/L LAB CHEMISTRY METHOD 05/03/2025 5:29 PM [facility] CO2 29 21 - 32 mmol/L LAB CHEMISTRY METHOD 05/03/2025 5:29 PM [facility] Anion Gap 6 3 - 11 LAB CHEMISTRY METHOD 05/03/2025 5:29 PM [facility] Glucose 91 70 - 100 mg/dL LAB CHEMISTRY METHOD 05/03/2025 5:29 PM [facility] BUN 7 5 - 25 mg/dL LAB CHEMISTRY METHOD 05/03/2025 5:29 PM [facility] Creatinine 0.79 0.50 - 1.10 mg/dL LAB CHEMISTRY METHOD 05/03/2025 5:29 PM [facility] eGFR 87 >=60 mL/min/1. 73m2 LAB CHEMISTRY METHOD 05/03/2025 5:29 PM T [facility] Comment:Calculation based on the Chronic Kidney Disease Epidemiology Collaboration (CKD-EPI) equation refit without adjustment for race. BUN/Creatinine Ratio 8.9 LAB CHEMISTRY METHOD 05/03/2025 5:29 PM [facility] Calcium 8.2(L) 8.5 - 10.5 mg/dL LAB CHEMISTRY METHOD 05/03/2025 5:29 PM [facility] AST (SGOT) 22 10 - 42 unit/L LAB CHEMISTRY METHOD 05/03/2025 5:29 PM [facility] ALT (SGPT) 33 10 - 60 unit/L LAB CHEMISTRY METHOD 05/03/2025 5:29 PM [facility] Alkaline Phosphatase 104 42 - 121 unit/L LAB CHEMISTRY METHOD 05/03/2025 5:29 PM [facility] Total Protein 7.4 6.0 - 8.0 g/dL LAB CHEMISTRY METHOD 05/03/2025 5:29 PM [facility] Albumin 4.5 3.2 - 5.0 g/dL LAB CHEMISTRY METHOD 05/03/2025 5:29 PM [facility] Total Bilirubin 0.6 0.0 - 1.4 mg/dL LAB CHEMISTRY METHOD 05/03/2025 5:29 PM [facility] Blood Venous blood specimen / Unknown Venipuncture / Unknown 05/03/2025 8:46 AM EDT 05/03/2025 8:46 AM EDT us Abram Carbajal MD LAB BLOOD ORDERABLES Final Result [facility] [address] [place] [address], * Thyroid stimulating hormone with reflex to free t4 and free t3 (05/03/2025 8:46 AM EDT) Pathologist [facility] TSH 3.20 0.40 - 4.00 mcIU/mL LAB CHEMISTRY METHOD 05/03/2025 6:14 PM T [facility] Blood Venous blood specimen / Unknown Venipuncture / Unknown 05/03/2025 8:46 AM EDT 05/03/2025 8:46 AM EDT us Abram Carbajal MD LAB BLOOD ORDERABLES Final Result [facility] [address] [place] [address], [place] [phone] * (ABNORMAL) Lipid panel with reflex to direct LDL (05/03/2025 8:46 AM EDT) Pathologist [facility] Cholesterol 250(H) 0 - 200 mg/dL LAB CHEMISTRY METHOD 05/03/2025 3:29 PM [facility] Triglycerides 177(H) 0 - 150 mg/dL LAB CHEMISTRY METHOD 05/03/2025 3:29 PM [facility] HDL 59 >=40 mg/dL LAB CHEMISTRY METHOD 05/03/2025 3:29 PM [facility] LDL Calculated 156(H) 0 - 100 mg/dL LAB CHEMISTRY METHOD 05/03/2025 3:29 PM [facility] Comment:Estimated LDL Calcul ated using equation: Total cholesterol - HDL cholesterol - (Triglycerides/5) VLDL Cholesterol Juan Manuel 35.4 mg/dL LAB CHEMISTRY METHOD 05/03/2025 3:29 PM [facility] Non HDL Chol. (LDL+VLDL) 191(H) <145 mg/dL LAB CHEMISTRY METHOD 05/03/2025 3:29 PM [facility] Chol/HDL Ratio 4.2 0.0 - 4.4 LAB CHEMISTRY METHOD 05/03/2025 3:29 PM EDT [facility] Blood Venous blood specimen / Unknown Venipuncture / Unknown 05/03/2025 8:46 AM EDT 05/03/2025 8:46 AM EDT Abram Carbajal MD LAB BLOOD ORDERABLES Final Result [facility] [address] [place] [address], documented in this encounter Visit Diagnoses Diagnosis Annual physical exam- Primary Routine general medical examination at a health care facility Hypothyroidism, unspecified type MCTD (mixed connective tissue disease) (CMS/HCC V24) Other specified diffuse disease of connective tissue Raynaud's phenomenon without gangrene documented in this encounter Historical Medications * This list may reflect changes made after this encounter. methotrexate 2.5 mg tablet Take 8 tablets (20 mg total) by mouth 1 (one) time per week Follow directions carefully, and ask to explain any part you do not understand. Take exactly as directed. added in this encounter Additional Health Concerns Assessment Noted Time PHQ-9 Depression Total Score: 0 05/03/20 25 7:53 AM EDT documented as of this encounter Care Teams Drop Man Relationship Specialty Start Date End Date Abram Carbajal MD [address] [place] [address] PCP - General 10/11/22 documented as of this encounter
--- NOTE | 2025-05-08 07:54 | MHC.OFFVIS ---
Vital Signs 05/08/25 07:55 Height 5 ft 10 in Weight 227 lb 15.327 oz BMI 32.7 BP 132/86 Blood Pressure Location Lt brachial Position Sitting Pulse 80 Pulse Source Pulse Oximeter Pulse Oximetry (%) 96 Oxygen Delivery Method Room Air Intake Visit Reasons: F/up thyroid cancer Intake Note: Patient present for Thyroid Cancer follow up. Larder Cook Required: No Accompanied by: Self / Same As Patient Allergies No Known Allergies Allergy (Verified 05/08/25 07:59) Medication List - Last Reconciled 05/08/25 by Jose Bach MD amlodipine 5 mg PO DAILY folic acid 1 mg PO DAILY hydroxychloroquine (Plaquenil) 400 mg PO DAILY leflunomide 10 mg PO DAILY leucovorin calcium 15 mg PO weekly; liothyronine 5 mcg PO BID methotrexate sodium 8 tabs weekly PO every week; Synthroid (levothyroxine) 137 mcg PO DAILY NS HPI Comments Details: 59 -year-old female today for fup visit, for fup PTC and postsurgical hypothyroidism . She is feeling well, she has no complaints. She has been on Synthroid 137 mcg plus Cytomel 5 mcg twice a day since 01/03/2019. She is 100 % adherent and she has a good method of administration. She has stage 1 PTC ( T1b, Nx M0). tumor size 1.5 x 1.5 x 1.0 cm Denies palpitations, tremors, constipation or diarrhea, nervousness, insomnia, weight stable, heat intolerance, sweating. She has PMH of mixed connective tissue disorder , post surgical/BLANCHARD ablation hypothyroidism for papillary carcinoma 2009. The summary of thyroid history is as follows: She underwent thyroid ultrasound on 05/15/10 and was found to have a multinodular goiter. One nodule had PTC in the right lower base that measured 1.19 x 1.52 x 1.83 cm and The patient underwent total thyroidectomy on 07/17/10. Histology showed that papillary carcinoma measured 1.5 x 1.5 x 1.0 cm and it was present in the right lobe. There was no lymphovascular invasion and no extra thyroidal extension was identified. The margins were free of tumor. The stage was pT1b lymph nodes were not resected during thyroidectomy and classification for lymph nodes pNx. After thyroidectomy, the patient underwent pre- ablation scan which was conducted on 08/14/10. This scan showed focused radioiodine uptake in the neck. There was no other uptake other than physiologic indicating that there was no distant metastatic disease uptake in the neck of the thyroid bed indicates a functioning thyroid tissue as the patient has not yet had radioactive iodine ablation. She was ablated with 101.3 mCi of radioactive iodine-131 on 08/17/10. Neck ultrasound in 02/12/2020 showed normal morphology lymphadenopathy no abnormal lymph nodes and no residual tissue. Laboratory Tests 01/29/20 02/17/21 02/17/21 07:42 08:20 08:20 TSH 3rd Generation 0.40 TSH 0.72 Free T4 1.02 Free T3 Thyroglobulin <0.1 Thyroglobulin Antibody <1 02/17/21 08:20 TSH 3rd Generation TSH Free T4 Free T3 3.3 Thyroglobulin Thyroglobulin Antibody Laboratory Tests 11/02/18 11/02/18 01/02/19 10:25 10:25 08:49 TSH Free T4 1.06 1.00 Free T3 2.7 TSH 3rd Generation 6.01 H 5.35 H Thyroglobulin Thyroglobulin Antibody 01/02/19 07/17/19 07/17/19 08:49 08:41 08:41 TSH Free T4 1.02 Free T3 2.7 3.1 TSH 3rd Generation 2.83 Thyroglobulin <0.1 Thyroglobulin Antibody <1 01/29/20 01/29/20 09/02/20 07:42 07:42 08:30 TSH 2.36 Free T4 1.07 0.94 Free T3 3.7 TSH 3rd Generation 0.40 Thyroglobulin <0.1 Thyroglobulin Antibody <1 09/02/20 09/02/20 02/17/21 08:30 08:30 08:20 TSH Free T4 Free T3 3.1 TSH 3rd Generation Thyroglobulin <0.1 Thyroglobulin Antibody <1 <1 Synthroid 137 mcg and Cytomel 5 mcg The patient is a 59-year-old female presenting for follow-up of thyroid cancer and management of hypothyroidism. The patient has a history of thyroid cancer, for which she has been undergoing regular monitoring. Her thyroglobulin levels are undetectable, indicating effective management of her condition. There is a recommendation for a neck ultrasound to ensure no recurrence or abnormalities, despite the low likelihood of issues given the current undetectable thyroglobulin levels. The patient is also managing hypothyroidism with Synthroid 137 mcg and Cytomel 5 mcg twice daily. She reports good compliance with her medication regimen, and her recent blood tests indicate that her thyroid function is within normal range. [facility] Medical History (Updated 02/26/21 @ 07:42 by Iveth Pollard MD) Primary thyroid cancer Hypothyroidism Surgical History History of biopsy History of surgery Hx of total thyroidectomy Family History Mother Myocardial infarct Social History Alcohol intake: current Patient Tobacco Use Status: Never used Tobacco Physical Exam Vital Signs: Last Vital Signs Pulse 80 05/08/25 07:55 BP 132/86 05/08/25 07:55 Pulse Ox 96 05/08/25 07:55 Oxygen Delivery Method Room Air 05/08/25 07:55 BMI result Body Mass Index 32.7 HEENT Other: Healed scar status post thyroidectomy. There is no cervical adenopathy palpated. Reflexes 2+ deep Assessment & Plan Assessment & Plan (1) Primary thyroid cancer: Code(s): C73 - Malignant neoplasm of thyroid gland Category: Medical Plan: This is a 59-year-old white female with a history of papillary cancer status post total thyroidectomy currently replaced on levothyroxine (Synthroid) 137 mcg and Cytomel 5 mcg. She appears to be clinically biochemically euthyroid. Thyroglobulin have been undetectable. Plan is to continue the current management. We will have patient follow up with Dr. Forbes who has expertise in neck ultrasound to do a follow up neck ultrasound 1. Thyroid cancer The patient's thyroglobulin levels are undetectable, suggesting effective management. A neck ultrasound is recommended to ensure no recurrence, although the likelihood of issues is low given current lab results. 2. Hypothyroidism The patient is stable on Synthroid 137 mcg and Cytomel 5 mcg twice daily. Blood tests confirm normal thyroid function, and the patient reports good compliance with her medication regimen. I discussed with the patient that her thyroglobulin levels are undetectable, indicating effective management of her thyroid cancer. I recommended a neck ultrasound to ensure no recurrence, although the likelihood of issues is low. We also reviewed her hypothyroidism management, confirming that her current medication regimen is effective and her thyroid function tests are normal. I advised her to continue her current medications and scheduled a follow-up for a neck ultrasound in five to six months. - Continue taking Synthroid 137 mcg daily and Cytomel 5 mcg twice daily as prescribed. - Schedule a neck ultrasound in five to six months to monitor for any changes. - Follow up with the shuffle board operator as planned. The patient had an opportunity to ask questions regarding treatment plan. The patient expressed understanding and agreement with the above treatment plan. Patient was informed and verbally consented to the use of an ambient scribe for clinic note documentation during this visit. Coding Level of Care Code Est Pt Level 3 (82964) Diagnoses Primary thyroid cancer C73
[2025-05-08 07:55] VITALS: BP 132/86; PULSE 80; O2SAT 96; BMI 32.7
--- OUTSIDE RECORDS SUMMARY | 2025-05-08 07:57 | XMS_ITS | Clinical Summary ---
Author Organization [facility] Address [address] [address] Phone Care Team Providers Care Orthotic Fitter Name Role Phone Alexsandra Aranda MD Primary [...] - PCV20 or PCV21) 01/17/2024 01/16/2019, 07/07/2018 INFLUENZA VACCINE (#1) 2025 , 09/21/2019, 07/07/2018, Additional history exists COVID-19 VACCINE ( - season) 2025 02/03/2021, 01/05/2021 HEPATITIS A VACCINES Aged Out No long [...] topic Medical Devices Not on file Insurance [facility] Member Subscriber Plan / Payer (Ef fective for All Dates) Name:Heather Ball Relation to Subscriber:Spouse Name:CLIF WATKINS Date of :1900 (Home) Address: [address] [place] [address] Payer ID:[id number] (NAIC) Type:HMO Address: [address] [place], [place] [facility] Member Subscriber Plan / Payer (Ef fective for All Dates) Name:Heather Ball Relation to Subscriber:Spouse Name:CLIF WATKINS Date of :1900 (Home) Address: [address] [place] [address] Payer ID:[id number] (NAIC) Type:HMO Address: [address] [place], [place] [facility] HMO POS [facility] POS Care Teams Orthotic Fitter Relationship Specialty Start Date End Date Alexsandra Aranda MD [facility] [address] [address] PCP - General 03/05/14 Additional Source Comments The information contained in this document represents components of the legal health record. It is not the complete legal health record.[facility]
--- OUTSIDE RECORDS SUMMARY | 2025-05-08 07:57 | XMS_ITS | Clinical Summary ---
Author Organization [facility] Address [address] [place] [address] Phone Care Team Providers Care Script Reader Name Role Phone Abram Carbajal MD Primary Care Provider Allergies No known active allergies Medications amLODIPine (NORVASC) 5 mg tablet Take [...] mouth 1 (one) time each day. Active methotrexate 2.5 mg tablet Take 8 tablets (20 mg total) by mouth 1 (one) time per week Follow directions carefully, and ask to explain any part you do not understand. Take exactly as directed. 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 12/05 Postoperative hypothyroidism 12/31/2021 Cataract, left 06/09/2021 Mixed collagen vascular disease ([facility] V24) Overview (06/14/2024): Mixed Connective Tissue Disease Thyroid cancer ([facility] V24, [facility] V28) 2009 Overview (06/14/2024): Papillary thyroid cancer stage I, 2009 [facility] - thyroidectomy MCTD (mixed connective tissue disease) ([facility] V24) 06/05/2008 Overview (06/14/2024): Plaquenil use Encounters Date Type Department Care Team Description 05/03/2025 8:00 AM EDT Office Visit Adult Medicine [address] [address] Abram Carbajal MD Annual physical exam (Primary Dx); Hypothyroidism, unspecified type; MCTD (mixed connective tissue disease) ([facility] V24); Raynaud's phenomenon without gangrene from Last 3 Months Immunizations Name Administration Dates Next Due Influenza [...] Surgery Date Site/Laterality Comments ESOPHAGOGASTRODUODENOSCOPY 11/12/08 PROCEDURE: [place] ESOPHAGOGASTRODUODENOSCOPY TRANSORAL DIAGNOSTIC; COMMENT: normal, except for impressionof twisting of stomach OTHER SURGICAL HISTORY 2006 PROCEDURE: NH BIOPSY MUSCLE DEEP OTHER SURGICAL HISTORY 07/17/2007 PROCEDURE: [place] THYROIDECTOMY TOTAL/SUBTOTAL LMTD NECK DISSECT Medical History Medical History Date Comments Extrinsic asthma, unspecified DX :Extrinsic asthma, unspecified; COMMENT: as a child 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 Mixed connective tissue dise ase ([facility] V24) DX:Mixed connective tissue d isease ([facility]) History of blood clotting disorder Sep 2007 DX:History of blood clotting disorder; COMMENT: during Pyloric stenosis 1967 DX:Pyloric sten osis Preeclampsia DX:Preeclampsia Thyroid cancer ([facility] V24, [facility] V28) 06/16/2010 DX:Thyroid cancer ([facility]) Thyroid cancer ([facility] V24, [facility] V28) 06/16/2010 DX:Thyroid cancer ([facility]) Lupus (systemic lupus erythe matosus) ([facility] V24, [facility] V28) DX:Lupus (systemic lupus erythematosus) ([facility]); COMMENT: Dr Rick Dodge, [facility] Raynaud's disease DX:Raynaud's d isease RA (rheumatoid arthritis) ([facility] V24, [facility] V28) 06/09/2021 DX:RA (rheumatoid arthritis) ([facility]) Family History Medical History Relation Name Comments [...] care for your loved ones. For example, children's nursery assistant or elderly care for an older adult? [...] Mass Index 33.46 05/03/2025 7:49 AM EDT Plan of Treatment Upcoming Encounters Date Type Department Care Team (Late st Contact Info) Description 05/07/2026 8:00 AM EDT Office Visit Adult Medicine [facility] [address], [place] [phone] Abram Carbajal MD [address] [place] [address] Health Maintenance Due Date Last Done Comments Influenza Vaccine (#1) 2025 3, 07/08/2020, 09/21/2019, Additional history exists COVID-19 Vaccine (3 - Moderna risk series) 09/05/2025 02/03/2021, 01/05/2021 Postponed from 03/03/2021 (Patient Refused) Cervical Cancer Screening: Pap Smear 09/05/2025 Postponed from 1988 (Patient Refused) HIV Screening 09/05/2025 Postponed from 08/08/2022 (Patient Refused) Hepatitis B Vaccines (1 of 3 - 19+ 3-dose series) 09/05/2025 Postponed from 1986 (Patient Refused) Pneumococcal Vaccine: 50+ Years (3 of 3 - PPSV23, PCV20 or PCV21) 09/05/2025 01/16/2019, 07/07/2018 Postponed from 01/17/2024 (Patient Refused) Zoster Vaccines (1 of 2) 09/05/2025 Pos tponed from 1986 (Patient Refused) Social Influencers of Health Screening 05/03/2026 05/03/2025 Breast Cancer Screening 05/03/2027 05/03/2025, 10/26 Colorectal Cancer Screening: FIT-DNA (Cologuard) 05/30/2027 05/30/2024 Cholesterol Screening (Lipid Panel) 05/03/2030 05/03/2025, 04/21/2022 DTaP,Tdap,and Td Vaccines (4 - Td or Tdap) 05/03/2034 05/03/2024, 02/26/2013, 06/05/2008 Depression Screening Completed 05/03/2025 Hepatitis C Screening Completed 05/03/2025 HIB Vaccines Aged Out No longer eligi [...] on patient's age to complete this topic Procedures Procedure Name Priority Date/Time Associated Diagnosis Comments CBC WITH AUTO DIFFERENTIAL Routine 05/03/2025 8:46 AM EDT Annual physical exam CBC AND DIFFERENTIAL Routine 05/03/2025 8:46 AM EDT Annual physical exam LIPID PANEL WITH REFLEX TO DIRECT LDL Routine 05/03/2025 8:46 AM EDT Annual physical exam THYROID STIMULATING HORMONE WITH REFLEX TO FREE T4 AND FREE T3 Routine 05/03/2025 8:46 AM EDT Annual physical exam COMPREHENSIVE METABOLIC PANEL Routine 05/03/2025 8:46 AM EDT Annual physical exam HEMOGLOBIN A1C Routine 05/03/2025 8:46 AM EDT Annual physical exam HEPATITIS C ANTIBODY Routine 05/03/2025 8:46 AM EDT Annual physical exam MG MAMMO DIGITAL DIAGNOSTIC BILAT Routine 05/03/2025 8:09 AM EDT from Last 3 Months Results * Hepatitis C antibody (05/03/2025 8:46 AM EDT) Hepatitis C Antibody Negative Negative LAB CHEMISTRY METHOD 05/03/2025 5:06 PM EDT [facility] Blood Venous blood specimen / Unknown Venipuncture / Unknown 05/03/2025 8:46 AM EDT 05/03/2025 8:46 AM EDT Abram Carbajal MD LAB BLOOD ORDERABLES Final Result Performing Organization Address [facility]/State/ZIP Co de Phone Number [facility] [address] [place] [address], [place] [phone] * Thyroid stimulating hormone with reflex to free t4 and free t3 (05/03/2025 8:46 AM EDT) Pathologist [facility] TSH 3.20 0.40 - 4.00 mcIU/mL LAB CHEMISTRY METHOD 05/03/2025 6:14 PM EDT [facility] Blood Venous blood specimen / Unknown Venipuncture / Unknown 05/03/2025 8:46 AM EDT 05/03/2025 8:46 AM EDT us Abram Carbajal MD LAB BLOOD ORDERABLES Final Result Performing Organization Address City/[facility]/ZIP Co de Phone Number [facility] [address] [place] [address], [place] [phone] * (ABNORMAL) Lipid panel with reflex to direct LDL (05/03/2025 8:46 AM EDT) Cholesterol 250(H) 0 - 200 mg/dL LAB CHEMISTRY METHOD 05/03/2025 3:29 PM EDT [facility] Triglycerides 177(H) 0 - 150 mg/dL LAB CHEMISTRY METHOD 05/03/2025 3:29 PM EDT [facility] HDL 59 >=40 mg/dL LAB CHEMISTRY METHOD 05/03/2025 3:29 PM EDT [facility] LDL Calculated 156(H) 0 - 100 mg/dL LAB CHEMISTRY METHOD 05/03/2025 3:29 PM EDT [facility] Comment:Estimated LDL Calcul ated using equation: Total cholesterol - HDL cholesterol - (Triglycerides/5) VLDL Cholesterol Malik 35.4 mg/dL LAB CHEMISTRY METHOD 05/03/2025 3:29 PM EDT [facility] Non HDL Chol. (LDL+VLDL) 191(H) <145 mg/dL LAB CHEMISTRY METHOD 05/03/2025 3:29 PM EDT [facility] Chol/HDL Ratio 4.2 0.0 - 4.4 LAB CHEMISTRY METHOD 05/03/2025 3:29 PM EDT [facility] Blood Venous blood specimen / Unknown Venipuncture / Unknown 05/03/2025 8:46 AM EDT 05/03/2025 8:46 AM EDT us Abram Carbajal MD LAB BLOOD ORDERABLES Final Result [facility] [address] [place] [address], [place] [phone] * (ABNORMAL) CBC auto differential (05/03/2025 8:46 AM EDT) [facility] WBC 6.1 4.8 - 10.8 K/mcL LAB HEMETOLOGY METHOD 05/03/2025 10:[address] [facility] RBC 4.90(H) 3.80 - 4.80 M/mcL LAB HEMETOLOGY METHOD 05/03/2025 10:[address] [facility] Hemoglobin 13.9 11.5 - 16.0 g/dL LAB HEMETOLOGY METHOD 05/03/2025 10:[address] [facility] Hematocrit 44.9 35.0 - 47.0 % LAB HEMETOLOGY METHOD 05/03/2025 10:[address] [facility] MCV 91.6 79.0 - 98.0 FL LAB HEMETOLOGY METHOD 05/03/2025 10:[address] [facility] MCH 28.4 27.0 - 32.0 pcg LAB HEMETOLOGY METHOD 05/03/2025 10:[address] [facility] MCHC 31.0(L) 32.0 - 37.0 g/dL LAB HEMETOLOGY METHOD 05/03/2025 10:[address] [facility] RDW 12.5 11.0 - 15.0 % LAB HEMETOLOGY METHOD 05/03/2025 10:[address] [facility] Platelets 226 130 - 400 K[facility] LAB HEMETOLOGY METHOD 05/03/2025 10:[address] [facility] MPV 12.0(H) 7.0 - 11.0 FL LAB HEMETOLOGY METHOD 05/03/2025 10:[address] [facility] NRBC 0.0 <1.0 % LAB HEMETOLOGY METHOD 05/03/2025 10:[address] [facility] NRBC Absolute 0.00 <0.10 K[facility] LAB HEMETOLOGY METHOD 05/03/2025 10:[address] [facility] Neutrophils Relative 54.6 % LAB HEMETOLOGY METHOD 05/03/2025 10:[address] [facility] Lymphocytes Relative 23.2 % LAB HEMETOLOGY METHOD 05/03/2025 10:[address] [facility] Monocytes Relative 7.5 % LAB HEMETOLOGY METHOD 05/03/2025 10:[address] [facility] Eosinophils Relative 13.4 % LAB HEMETOLOGY METHOD 05/03/2025 10:[address] [facility] Basophils Relative 1.1 % LAB HEMETOLOGY METHOD 05/03/2025 10:[address] [facility] Immature Granulocytes Relative 0.2 % LAB HEMETOLOGY METHOD 05/03/2025 10:[address] [facility] Neutrophils Absolute 3.33 1.50 - 7.00 K/mcL LAB HEMETOLOGY METHOD 05/03/2025 10:[address] [facility] Lymphocytes Absolute 1.42 1.00 - 5.00 K/mcL LAB HEMETOLOGY METHOD 05/03/2025 10:[address] [facility] Monocytes Absolute 0.46 0.20 - 1.00 K/mcL LAB HEMETOLOGY METHOD 05/03/2025 10:[address] [facility] Eosinophils Absolute 0.82(H) 0.00 - 0.50 K/mcL LAB HEMETOLOGY METHOD 05/03/2025 10:[address] [facility] Basophils Absolute 0.07 0.00 - 0.20 K/mcL LAB HEMETOLOGY METHOD 05/03/2025 10:[address] [facility] Immature Granulocytes Absolute 0.01 0.00 - 0.03 K/mcL LAB HEMETOLOGY METHOD 05/03/2025 10:[address] [facility] Blood Venous blood specimen / Unknown Venipuncture / Unknown 05/03/2025 8:46 AM EDT 05/03/2025 8:46 AM EDT Abram Carbajal MD LAB BLOOD ORDERABLES Final Result Performing Organization Address [facility]/ZIP Co de Phone Number [facility] [address] [place] [address], [place] [phone] * Hemoglobin A1c (05/03/2025 8:46 AM EDT) [facility] Hemoglobin A1C 5.4 <6.5 % LAB CHEMISTRY METHOD 05/03/2025 1:40 PM EDT [facility] Mean Bld Glu Estim. 108 mg/dL LAB CHEMISTRY METHOD 05/03/2025 1:40 PM EDT [facility] Blood Venous blood specimen / Unknown Venipuncture / Unknown 05/03/2025 8:46 AM EDT 05/03/2025 8:46 AM EDT Abram Carbajal MD LAB BLOOD ORDERABLES Final Result Performing Organization Address [facility]/ZIP Co de Phone Number [facility] [address] [place] [address], [place] [phone] * (ABNORMAL) Comprehensive metabolic panel (05/03/2025 8:46 AM EDT) [facility] Sodium 140 133 - 145 mmol/L LAB CHEMISTRY METHOD 05/03/2025 5:29 PM EDT [facility] Potassium 4.5 3.5 - 5.5 mmol/L LAB CHEMISTRY METHOD 05/03/2025 5:29 PM EDT [facility] Chloride 105 96 - 110 mmol/L LAB CHEMISTRY METHOD 05/03/2025 5:29 PM EDT [facility] CO2 29 21 - 32 mmol/L LAB CHEMISTRY METHOD 05/03/2025 5:[address] [facility] Anion Gap 6 3 - 11 LAB CHEMISTRY METHOD 05/03/2025 5:[address] [facility] Glucose 91 70 - 100 mg/dL LAB CHEMISTRY METHOD 05/03/2025 5:[address] [facility] BUN 7 5 - 25 mg/dL LAB CHEMISTRY METHOD 05/03/2025 5:[address] [facility] Creatinine 0.79 0.50 - 1.10 mg/dL LAB CHEMISTRY METHOD 05/03/2025 5:[address] [facility] eGFR 87 >=60 mL/min/1. 73m2 LAB CHEMISTRY METHOD 05/03/2025 5:[address] [facility] Comment:Calculation based on the Chronic Kidney Disease Epidemiology Collaboration (CKD-EPI) equation refit without adjustment for race. BUN/Creatinine Ratio 8.9 LAB CHEMISTRY METHOD 05/03/2025 5:[address] [facility] Calcium 8.2(L) 8.5 - 10.5 mg/dL LAB CHEMISTRY METHOD 05/03/2025 5:[address] [facility] AST (SGOT) 22 10 - 42 unit/L LAB CHEMISTRY METHOD 05/03/2025 5:[address] [facility] ALT (SGPT) 33 10 - 60 unit/L LAB CHEMISTRY METHOD 05/03/2025 5:[address] [facility] Alkaline Phosphatase 104 42 - 121 unit/L LAB CHEMISTRY METHOD 05/03/2025 5:[address] [facility] Total Protein 7.4 6.0 - 8.0 g/dL LAB CHEMISTRY METHOD 05/03/2025 5:[address] [facility] Albumin 4.5 3.2 - 5.0 g/dL LAB CHEMISTRY METHOD 05/03/2025 5:[address] [facility] Total Bilirubin 0.6 0.0 - 1.4 mg/dL LAB CHEMISTRY METHOD 05/03/2025 5:29 PM EDT [facility] Blood Venous blood specimen / Unknown Venipuncture / Unknown 05/03/2025 8:46 AM EDT 05/03/2025 8:46 AM EDT Abram Carbajal MD LAB BLOOD ORDERABLES Final Result [facility] [address] [place] [address], * MG Mammo Digital Diagnostic bilat (05/03/2025 8:09 AM EDT) Anatomical Region Laterality Modality Breast Bilateral Mammography Historical Provider IMG BI PROCEDURES Final R esult from Last 3 Months Insurance [employer] Care Teams Script Reader Relationship Specialty Start Date End Date Abram Carbajal MD [address] [place] [address] PCP - General 10/11/22
--- OUTSIDE RECORDS SUMMARY | 2025-05-08 07:57 | XMS_ITS | Clinical Summary ---
Author Organization [facility] Address [address] [place] [address] Care Team Providers Care Instructor Physical Name Role Phone Abram Carbajal Primary Care Provider [phone] Allergies No known active allergies Medications liothyronine (CYTOMEL) 5 mcg tablet Take 5 mcg by mouth. Active levothyroxine (SYNTHROID, LEVOTHROID) 137 mcg tablet Take 1 tablet by mouth daily. Active methotrexate (TREXALL) 2.5 mg tablet TAKE 8 TABLETS (20MG TOTAL)ONCE WEEKLY 96 tablet 11/22/2024 Active leucovorin 15 mg tablet TAKE 1 TABLET WEEKLY WITH AFULL GLASS OF WATER 12 tablet 3 01/02/2025 Active amLODIPine (NORVASC) 5 mg tablet TAKE 1 TABLET ONCE DAILY 90 tablet 3 03/04/2025 Active hydroxychloroqu ine (PLAQUENIL) 200 mg tablet TAKE 2 TABLETS DAILY 180 tablet 3 03/04/2025 Active folic acid (FOLVITE) 1 mg tablet TAKE 1 TABLET ONCE DAILY 90 tablet 3 03/04/2025 Active leflunomide (ARAVA) 10 mg tabletIndicatio ns:Mixed connective tissue disease (HCC),High risk medication use Take 1 tablet (10 mg total) by mouth once a day. 90 tablet 3 04/18/2025 Active Active Problems Problem Noted Date Diagnosed Date High risk medication use 12/27/2022 [place] deformity of finger of both hands 12/05 Postoperative hypothyroidism 12/31/2021 Mixed connective tissue disease 12/31/2021 Resolved Problems Problem Noted Date Diagnosed Date Resolved Date Abnormal PFTs 12/27/2022 Encounters Date Type Department Care Team Description 04/14/2025 Refill [facility] [address] [place] [id number] Director Of Food And Nutrition: Kalee Bob MD Mixed connective tissue disease (HCC); High risk medication use 02/24/2025 Refill [facility] [address] [place] [id number] Director Of Food And Nutrition: Kalee Bob MD 02/21/2025 Refill [facility] [address] [place] [id number] Director Of Food And Nutrition: Kalee Bob MD Mixed connective tissue disease [...] Info) Description 01/08/2026 10:20 AM EDT Follow-Up [facility] [address], [place] [id number] Director Of Food And Nutrition: Nano Nur, Kalee Lozano MD [address] [place] [address] Health Maintenance Due Date Last Done Comments [...] - PCV20 or PCV21) 01/17/2024 01/16/2019, 07/07/2018 Alcohol/Substance Use Screening 09/05/2024 Depression Screening and Follow-Up 09/05/2024 Social Drivers of Health Anju ual Screening 09/05/2024 COVID-19 Vaccine (3 - 2024-2 6 season) 2025 02/03/2021, 01/05/2021 Influenza Vaccine (#1) 2025 , 07/08/2020, 09/21/2019, Additional history exists DTaP,Tdap,and Td Vaccines (3 - Td or Tdap) 05/03/2034 05/03/2024, 02/26/2013, 06/05/2008 RSV Vaccine (60+ years old a nd patients) (1 - 1-dose 75+ series) 2042 Procedures * Due to [place] [employer] law, this organization might not be sharing negative HIV tests. Procedure Name Priority Date/Time Associated Diagnosis Comments LAB - SCANNED 03/29/2025 from Last 3 Months Results * Due to [place] [employer] law, this organization might not be sharing negative HIV tests. * LAB - SCANNED (03/29/2025) us Onbase Scan [facility] LAB HISTORICAL RESULTS Final Result from Last 3 Months Insurance [facility] HMO/POS Care Teams Instructor Physical Relationship Specialty Start Date End Date Abram Carbajal [address] [place] [address] PCP - General 07/10/24
== END 2025-05-08 08:11 | disposition home or self-care (01) ==
LOC: HO.ENCR 07:50
PROVIDERS: PCP Internal Medicine; Visit Provider Internal Medicine Endocrinology, Diabetes & Metabolism
DX: C73 Malignant neoplasm of thyroid gland (principal)
CPT/HCPCS: 99213